=== PATIENT | female | born 1970 ===

== ENCOUNTER 2022-04-27 10:15 | Inpatient (IN) | payer OTHER ==
[~2022-04-27] VITALS: Ht 149.9 cm; Wt 79.4 kg
[2022-04-27] MEDS ORDERED: CRESTOR20 MG PO (11:11)
[2022-04-27] MEDS ORDERED: COZAAR25 MG PO (11:11)
[2022-04-27] MEDS ORDERED: CABERGOLINE PO (11:11)
[2022-04-28] MEDS ORDERED: VITAMIN D21250 MCG (08:50)
[2022-04-28] MEDS ORDERED: D3-200050 MCG (08:50)
[2022-04-28] MEDS ORDERED: CABERGOLINE0.5 MG PO (08:50)
[2022-04-28] MEDS ORDERED: BUSPIRONE HCL5 MG (08:50)
[2022-04-28] MEDS ORDERED: CYANOCOBAL1000 MCG/1 (08:50)
== END 2022-04-30 15:19 | disposition home or self-care (01) | DRG 743 ==
LOC: O/R 04-28 06:00 → OB/GYN 04-28 10:15
PROVIDERS: ADMIT Specialist; ATTEND Specialist
PROC: 0UT70ZZ Resection of Bilateral Fallopian Tubes, Open Approach (ICD-10-PCS; 2022-04-28)
PROC: 0DNU0ZZ Release Omentum, Open Approach (ICD-10-PCS; 2022-04-28)
PROC: 0DNW0ZZ Release Peritoneum, Open Approach (ICD-10-PCS; 2022-04-28)
PROC: 0TN70ZZ Release Left Ureter, Open Approach (ICD-10-PCS; 2022-04-28)
PROC: 0TN60ZZ Release Right Ureter, Open Approach (ICD-10-PCS; 2022-04-28)
PROC: 0DBU0ZZ Excision of Omentum, Open Approach (ICD-10-PCS; 2022-04-28)
PROC: 0UT90ZZ Resection of Uterus, Open Approach (ICD-10-PCS; principal; 2022-04-28 15:00)
DX: D25.1 Intramural leiomyoma of uterus (principal); D25.2 Subserosal leiomyoma of uterus; Z20.822 Contact with and (suspected) exposure to COVID-19; N73.6 Female pelvic peritoneal adhesions (postinfective)